=== PATIENT | female | born 1940 | race Caucasian/White ===

== ENCOUNTER 2016-10-29 05:48 | Observation (INO) | payer MEDICARE ==
--- NOTE | ~2016-10-29 | DS ---
Discharge Summary [facility] [address] [place]. [address] NAME: SANDRA ABDALLA : 36 STATUS : DIS Joellen PAT#: [id number] AGE: 75 ADM/REG DATE : 10/29/16 MR#: [id number] REPORT SERV DATE: 11/01/16 DICTATED BY: LIGIA KILPATRICK II DATE: 10/31/16 REPORT STATUS : Draft TRANSCRIBED BY: MODL DATE: 10/31/16 ADMISSION DATE: 10/29/2016 DISCHARGE DATE: 10/31/2016 DISCHARGE DIAGNOSES: 1. Reported lower gastrointestinal bleed with no evidence currently, currently resolved. 2. Urinary tract infection. 3. Acute kidney injury. 4. Atrial fibrillation, on Eliquis. 5. Debility due to history of hip fracture and history of cerebrovascular accident. 6. Dementia. 7. Coronary artery disease. CONSULTS: Morales Mitchell M.D., with GI. BRIEF HISTORY OF PRESENT ILLNESS: The patient is a 75-year-old female with the above history who presented to [facility] due to alleged GI bleeding. For detailed history and physical examination, please see Dr. Tony Roy's note from 10/29/2016. HOSPITAL COURSE: After admission, the patient's stool was sent for occult blood, which was negative. Dr. Mitchell saw the patient, and while at [facility], she had no evidence of any bleeding or melena. Her stools were brown, and as mentioned, her Hemoccult was negative. Dr. Mitchell, especially in light of stable hemoglobin, was not inclined to scope the patient, so she was observed and has had no further issues. Her Eliquis has been restarted and she is, otherwise, stable. She was noted to have moderate leukocyte esterase, small blood, and greater than 182 white cells in her urine with urine culture positive for E coli. She was given Rocephin and switched to Duricef, which she will take four more days. Also of note, her creatinine was elevated at 1.52 on admission. Her losartan and Lasix have been continued and has gone up slightly to 1.6. She has no evidence of edema, likely secondary to over-diuresis. We will hold her losartan and decrease her Lasix to 40 daily and have her repeat a BMP this Wednesday to make sure she will be able to restart her medications. Currently, stable for discharge back to [facility]. DISCHARGE MEDICATIONS: 1. Norvasc 10 mg p.o. daily. 2. Lasix 40 mg p.o. daily. 3. Amaryl 4 mg p.o. daily. 4. Madison 7.5/325 mg p.o. daily. 5. Lantus 10 units subcu at bedtime. 6. Metoprolol 100 mg p.o. daily. 7. Protonix 40 mg p.o. daily. 8. K-Dur 20 mEq p.o. daily. 9. Sodium bicarbonate 1300 mg p.o. b.i.d. 10.Carafate 1 g p.o. before each meal and at bedtime. 11.Toviaz 8 mg p.o. daily. 12.Eliquis 2.5 mg p.o. b.i.d. Discharge Summary [address] [address] NAME: SANDRA ABDALLA : 36 STATUS : DIS Joellen PAT#: [id number] AGE: 75 ADM/REG DATE : 10/29/16 MR#: [id number] REPORT SERV DATE: 11/01/16 DICTATED BY: LIGIA KILPATRICK II DATE: 10/31/16 REPORT STATUS : Draft TRANSCRIBED BY: VONNIE DATE: 10/31/16 13.Duricef 1000 mg p.o. b.i.d. x4 days. 14.May restart losartan when creatinine normalizes. DISCHARGE INSTRUCTIONS: The patient will be discharged back to [facility] for further care. JASON/VONNIE Ligia Kilpatrick II, MD / [id number] CC: Ligia Kilpatrick II, MD
--- NOTE | ~2016-10-29 | HP ---
History And Physical [place] [address] [place]. [address] NAME: SANDRA ABDALLA : 38 STATUS : ADM IN PAT#: [id number] AGE: 75 ADM/REG DATE : 10/29/16 MR#: [id number] REPORT SERV DATE: 10/29/16 DICTATED BY: LINDA BENAVIDEZ DATE: 10/29/16 REPORT STATUS : Draft TRANSCRIBED BY: MODL DATE: 10/29/16 DATE OF ADMISSION: 10/29/2016 REASON FOR ADMISSION: Alleged GI bleeding. HISTORY OF PRESENT ILLNESS: This is a 75-year-old white female who is alleged to have seen some blood in her stool around midnight at [facility]. She was sent to the emergency room at [place]. The reason was written on the record for blood in the stool. A rectal exam was done there. No result is available. She was seen by Dr. Joya and Dr. Carlisle. She was referred to [facility], received by Dr. Park for possible GI evaluation. The patient is on Eliquis because of atrial fibrillation and multiple previous strokes. She has had a massive GI bleed, was hospitalized at [place] in the past. She had a polyp in her stomach that was removed and others that were clipped back in 2012. Daughter gives the history because the patient has multiple vascular insults to her brain and has had a rapid decline in dementia. She had trouble walking after she left the hospital in 2012, has not walked again since hip fracture in 06/2016 and has been in the longterm, is completely bedridden now. She had wanted to be on life support in the past though discussed and declined with daughter. If the natural comes, the patient will not be resuscitated in the event of a cardiac arrest. History from the patient is not forthcoming. She is unable to tell me that she saw any blood at all. She was told she had blood in her stool and sent to the emergency room. Confirmation in the emergency room is not forthcoming from Dr. Carlisle's note at [facility]. PAST MEDICAL HISTORY: Massive GI bleeding at [place] whether this was [place] or [facility] is unclear. This was in 2012. The patient had abrupt decline after that. She was in the ICU for a prolonged period of time. Her colonoscopy was done in 2012 as well as upper endoscopy. Daughter is sure that the reference to pathology was in the stomach at the hospital in [place]. She was hospitalized on multiple occasions most recently at [place] with a fractured hip in June but has not walked since that time. Her other medical conditions include diabetes type 2 with long-term use of insulin, multiple TIAs and strokes with some left hemiparesis residual. She has atherosclerotic cardiovascular disease and had CABG in the past. She has had difficulty walking with muscle weakness and atrophy, cognitive dysfunction with increasing dementia, rapidly advancing, since June, osteoarthritis, history of atrial fibrillation, long-term use of anticoagulants, most recently Eliquis, history of left hip fracture and artificial joint replacement. MEDICATIONS: Her longterm medicines are listed as follows: Lantus 10 units subcu at bedtime, amlodipine 10 mg p.o. daily, furosemide 80 mg p.o. daily, Glimepiride 4 mg p.o. History And Physical [address] [address] NAME: SANDRA ABDALLA : 38 STATUS : ADM IN [facility]#: [id number] AGE: 75 ADM/REG DATE : 10/29/16 MR#: [id number] REPORT SERV DATE: 10/29/16 DICTATED BY: LINDA BENAVIDEZ DATE: 10/29/16 REPORT STATUS : Draft TRANSCRIBED BY: VONNIE DATE: 10/29/16 daily, hydrocodone 7.5/325 one p.o. each morning for pain, Tamiflu ceased 2 weeks ago, losartan 100 mg p.o. daily, metolazone 2.5 mg on Wednesday, Wednesday, Wednesday, metoprolol ER 100 mg p.o. by mouth daily, pantoprazole 40 mg p.o. daily, potassium chloride 20 mEq p.o. daily, Toviaz ER 8 mg p.o. daily, Eliquis 2.5 mg p.o. b.i.d., sodium bicarbonate 650 two tablets b.i.d., JASE hose, Carafate 1 g before each meal and at bedtime, acetaminophen 650 mg p.o. q.6 hours p.r.n. pain, milk of magnesia as needed, Fleet Enema as needed, soapsuds enema as needed. SOCIAL HISTORY: The patient is a retired school bus operator. She was 45 years ago. She has two daughters. She never smoked. Drank occasionally socially. Attended religion in the remote past. She lived in [place] in 1965, most recently in [place] for many years. She has a daughter who lives in [place]. Another daughter lives in [place], [place] who spoke with me, Carlos Wills. FAMILY HISTORY: There are no known diseases that run in the family according to the patient. REVIEW OF SYSTEMS: She denies any chest pain, shortness of breath. No fever, chills, night sweats. No unilateral weakness. She denies knowing of stool bleeding firsthand. She has been in the hospital in various places, [place], [place], [facility] but most recently transferred here for GI bleeding. The patient has history of DVT and PE in the past. The remainder of the review of systems is unobtainable or negative. PHYSICAL EXAMINATION: GENERAL: She has a melenic fetor, stool has that smell as does flatus and possibly breath. VITAL SIGNS: Blood pressure was 150/65, heart rate 94, respiratory rate 14, temperature 98. HEENT: EOMI. Sclerae clear. Conjunctivae pink. NECK: No bruit without any JVD. CHEST: Clear to A and P. HEART: Regular S1, S2 without murmur, gallop, or click. ABDOMEN: Soft, nontender. Bowel sounds are positive. EXTREMITIES: No edema. She is partially obese. RECTAL: Showed light onofre stool with hemorrhoids palpable. No clot was seen on visual inspection. No masses felt in the rectal examination. NEUROLOGIC: The patient has tremor left side with left-sided weakness. She has clonus right side greater than left side with extension contractures of her ankles. Her assistant counsel on the right side is intact. She is alert, able to give history, and her speech is normal. She does not recall a complete history and is evasive about her answers. Tongue is midline. LYMPHATICS: There is no adenopathy palpable. SKIN: There is some ecchymosis of her left arm. LYMPHATICS: There is no mass. BREASTS: Postmastectomy on the right side. LABORATORY: CMP shows sodium 137, potassium 3.7. Her creatinine is 1.52 with BUN of 42. Her glucose 81, albumin 2.6. Liver tests were normal. Her hemoglobin was 10.1, hematocrit History And Physical [place] [id number] [facility] [place]. [address] NAME: SANDRA ABDALLA : 36 STATUS : ADM IN PAT#: [id number] AGE: 75 ADM/REG DATE : 10/29/16 MR#: [id number] REPORT SERV DATE: 10/29/16 DICTATED BY: LINDA BENAVIDEZ DATE: 10/29/16 REPORT STATUS : Draft TRANSCRIBED BY: MODL DATE: 10/29/16 31.3, MCV was 79.6, platelets 235. INR was 1.4. Her glucose checked 102 and 95. From the emergency room at [place], her previous hemoglobin on 10/01/2016 was 11.2 with hematocrit of 34.7, MCV 77.6 with a platelet count of 265. Her sodium 137, potassium 4.4, creatinine 1.7, BUN 49. Liver tests normal. Alk phosphatase slightly elevated at 112. In the emergency room at [facility], her hemoglobin is 10.6, hematocrit 31.4 with an MCV of 77.7, white count 9.5. Her creatinine was 1.6 with BUN of 48 there. ASSESSMENT: 1. Alleged gastrointestinal bleeding. A note from longterm showed lower gastrointestinal bleeding. She does have a history of massive upper gastrointestinal bleed. The patient does have a fetor of upper gastrointestinal bleeding and expected to see melanic stool. Rectal exam was negative. We will send stool for occult blood and check the stool from [place] to see if it was positive there. She does have a low MCV indicating probably some degree of blood loss. I question if Eliquis is safe with a history of an incomplete therapy of an upper gastrointestinal bleed in 2012 at [place], however, the patient does have a history of deep vein thrombosis and pulmonary embolism in the past. Managing this balance will be difficult and daughter understands this. The patient is to be a DNR here and she will reconsider at home. Hospice was discussed with daughter on the telephone and with the end of life care. 2. Coagulopathy, on Eliquis because of previous atrial fibrillation. 3. Dementia, likely vascular with multiple strokes and TIAs probably from the cardioembolic phenomena from her atrial fibrillation. 4. Atrial fibrillation. 5. Recent fractured left hip. 6. Complete bed ridden status. 7. Clonus, right greater than left. 8. Left hemiparesis from previous stroke. 9. Nonambulatory. 10.History of right mastectomy assumed from cancer. Stage and treatment are unknown at this point. 11.History of CABG with atherosclerotic cardiovascular disease. 12.Multiple strokes with neurologic deficits and progressive decline since 06/2016. PLAN: I am going to hold Eliquis. Home medications have not been identified and listed just yet but we will limit diabetes medications for now. If blood sugars have been low, give 1 L of normal saline. Repeat the serial hematocrits to see if there is evidence of bleeding. I am going to consult GI for consideration of an EGD to see if it is actually safe to give Eliquis given the previous history of upper GI pathology at [place] in 2012 when she had a massive upper GI bleed. The patient will be a DNR after discussion with her daughter, Carlos Wills, and she will consider Hospice Care once discharged from the hospital. BAYRON/VONNIE History And Physical [address] [address] NAME: SANDRA ABDALLA : 36 STATUS : ADM IN [facility]#: [id number] AGE: 75 ADM/REG DATE : 10/29/16 MR#: [id number] REPORT SERV DATE: 10/29/16 DICTATED BY: LINDA BENAVIDEZ DATE: 10/29/16 REPORT STATUS : Draft TRANSCRIBED BY: VONNIE DATE: 10/29/16 Linda Benavidez M.D. / [id number] CC: Jose Alberto Ontiveros M.D.
[2016-10-29 08:59] LABS: BASOPHILS 0.2 %; BASOPHILS ABSOLUTE 0.02 10/3/uL (0.0-0.16); EOSINOPHILS 1.5 %; EOSINOPHILS ABSOLUTE 0.13 10/3/uL (0.0-0.53); HEMATOCRIT 31.3 % (36.0-48.0); HEMOGLOBIN 10.1 g/dL (12.0-16.0); IMMATURE GRANULOCYTES 0.2 %; IMMATURE GRANULOCYTES ABSOLUTE 0.02 10/3/uL (0.0-0.11); LYMPHOCYTES 37.1 %; LYMPHOCYTES ABSOLUTE 3.11 10/3/uL (0.67-4.30); MEAN CORPUS HGB CONC 32.3 g/dL (32.0-36.0); MEAN CORPUSCULAR HEMOGLOB 25.7 pg (26.0-34.0); MEAN CORPUSCULAR VOLUME 79.6 fL (80-100); MEAN PLATELET VOLUME 9.7 fL (9.2-13.0); MONOCYTES 5.5 %; MONOCYTES ABSOLUTE 0.46 10/3/uL (0.21-1.20); NEUTROPHILS 55.5 %; NEUTROPHILS ABSOLUTE 4.65 10/3/uL (2.02-8.40); PLATELET COUNT 235 10/3/uL (150-400); RBC DISTRIBUTION WIDTH 14.1 % (12.0-16.0); RED CELL COUNT 3.93 10/6/uL (4.0-5.6); WHITE BLOOD CELLS 8.4 10/3/uL (4.5-10.5)
[2016-10-29 09:00] LABS: MANUAL DIFF NO %
[2016-10-29 09:06] LABS: INTERNATIONAL NORMAL RATI 1.4 UNITS (-); PARTIAL THROMBO TIME 28.6 SEC (22.5-37.2); PROTIME (NOT ORD) 16.8 SEC (12.0-14.5)
[2016-10-29 09:18] LABS: A/G RATIO 0.7 (0.7-1.9); ALBUMIN 2.6 G/DL (3.5-5.0); ALKALINE PHOSPHATASE 102 U/L (45-117); BUN (BLOOD UREA NITROGEN) 42 MG/DL (6-23); CHLORIDE, SERUM 102 MMOL/L (96-112); CO2 (CARBON DIOXIDE) 25 MMOL/L (24-34); CREATININE 1.52 MG/DL (0.55-1.02); GFR AFRICAN AMERICAN 38 ML/MIN (>=60); GFR NON AFRICAN AMERICAN 33 ML/MIN (>=60); GLOBULIN 3.9 G/DL (2.5-4.1); GLUCOSE, SERUM 81 MG/DL (60-99); POTASSIUM, SERUM 3.8 MMOL/L (3.5-5.3); SGOT(AST) 20 U/L (5-40); SGPT(ALT) 26 U/L (5-65); SODIUM, SERUM 137 MMOL/L (135-148); TOTAL BILIRUBIN 0.3 MG/DL (0-1.2); TOTAL PROTEIN 6.5 G/DL (6.0-8.5)
[2016-10-29 11:50] LABS: ASCORBIC ACID (UR NOT ORDER) NEG (NEG); BILIRUBIN, URINE NEGATIVE (NEG); KETONE, URINE TRACE MG/DL (NEG); LEUKOCYTE ESTERASE(NOT OR MOD (NEG)
[2016-10-29 11:51] LABS: WBC (NOT ORDERED) (RFLEX) > 182 (0-5)
[2016-10-29 13:09] LABS: HEMATOCRIT 31.4 % (36.0-48.0); HEMOGLOBIN 10.3 g/dL (12.0-16.0)
[2016-10-29] MEDS ORDERED: LANTUS SC (13:54)
[2016-10-29] MEDS ORDERED: L80 PO (13:56)
[2016-10-29] MEDS ORDERED: AMARYL4 PO (13:56)
[2016-10-29] MEDS ORDERED: NORV10 PO (13:56)
[2016-10-29] MEDS ORDERED: TAMIFLU PO (13:57)
[2016-10-29] MEDS ORDERED: COZAAR100 MG PO (13:57)
[2016-10-29] MEDS ORDERED: NORCO1 TA2 PO (13:57)
[2016-10-29] MEDS ORDERED: ZAROX2.5B PO (13:58)
[2016-10-29] MEDS ORDERED: TOPXL100 PO (13:58)
[2016-10-29] MEDS ORDERED: TOVIAZ8 MG PO (13:59)
[2016-10-29] MEDS ORDERED: SODBICAR10 PO (13:59)
[2016-10-29] MEDS ORDERED: PROTONIX PO (13:59)
[2016-10-29] MEDS ORDERED: KDUR20 PO (13:59)
[2016-10-29] MEDS ORDERED: ELIQUIS 2.5 MG2.5 MG PO (13:59)
[2016-10-29] MEDS ORDERED: CARASPUDL PO (14:00)
[2016-10-29 16:12] LABS: HEMOGLOBIN 10.1 g/dL (12.0-16.0)
[2016-10-29 23:00] LABS: HEMATOCRIT 30.9 % (36.0-48.0); HEMOGLOBIN 10.2 g/dL (12.0-16.0)
[2016-10-30 09:18] LABS: HEMATOCRIT 35.2 % (36.0-48.0); HEMOGLOBIN 11.7 g/dL (12.0-16.0)
[2016-10-30 15:36] LABS: HEMATOCRIT 35.9 % (36.0-48.0)
[2016-10-30 22:40] LABS: HEMOGLOBIN 11.5 g/dL (12.0-16.0)
[2016-10-31 10:51] LABS: BASOPHILS 0.3 %; BASOPHILS ABSOLUTE 0.02 10/3/uL (0.0-0.16); EOSINOPHILS 1.2 %; EOSINOPHILS ABSOLUTE 0.09 10/3/uL (0.0-0.53); HEMOGLOBIN 11.8 g/dL (12.0-16.0); IMMATURE GRANULOCYTES 0.3 %; IMMATURE GRANULOCYTES ABSOLUTE 0.02 10/3/uL (0.0-0.11); LYMPHOCYTES 36.9 %; LYMPHOCYTES ABSOLUTE 2.84 10/3/uL (0.67-4.30); MEAN CORPUS HGB CONC 32.8 g/dL (32.0-36.0); MEAN CORPUSCULAR VOLUME 79.5 fL (80-100); MEAN PLATELET VOLUME 9.7 fL (9.2-13.0); MONOCYTES 8.2 %; MONOCYTES ABSOLUTE 0.63 10/3/uL (0.21-1.20); NEUTROPHILS 53.1 %; NEUTROPHILS ABSOLUTE 4.09 10/3/uL (2.02-8.40); PLATELET COUNT 262 10/3/uL (150-400); RED CELL COUNT 4.53 10/6/uL (4.0-5.6); WHITE BLOOD CELLS 7.7 10/3/uL (4.5-10.5)
[2016-10-31 10:59] LABS: CALCIUM, SERUM 8.9 MG/DL (8.5-10.4); CHLORIDE, SERUM 98 MMOL/L (96-112); CO2 (CARBON DIOXIDE) 26 MMOL/L (24-34); CREATININE 1.62 MG/DL (0.55-1.02); GFR AFRICAN AMERICAN 35 ML/MIN (>=60); GFR NON AFRICAN AMERICAN 30 ML/MIN (>=60); POTASSIUM, SERUM 4.1 MMOL/L (3.5-5.3); SODIUM, SERUM 139 MMOL/L (135-148)
[2016-10-31 11:01] LABS: BUN (BLOOD UREA NITROGEN) 25 MG/DL (6-23); GLUCOSE, SERUM 179 MG/DL (60-99)
[2016-10-31 11:05] LABS: MANUAL DIFF NO %
[2016-10-31 17:20] LABS: HEMATOCRIT 35.2 % (36.0-48.0); HEMOGLOBIN 11.6 g/dL (12.0-16.0)
== END 2016-10-31 19:29 ==
LOC: 6NO 05:48
PROVIDERS: Hospitalist; Internal Medicine
DX: K92.2 Gastrointestinal hemorrhage, unspecified (principal); N39.0 Urinary tract infection, site not specified; S37.009A Unspecified injury of unspecified kidney, initial encounter; I48.91 Unspecified atrial fibrillation; I69.398 Other sequelae of cerebral infarction; F03.90 Unspecified dementia, unspecified severity, without behavioral disturbance, psychotic disturbance, mood disturbance, and anxiety; I25.10 Atherosclerotic heart disease of native coronary artery without angina pectoris; E11.9 Type 2 diabetes mellitus without complications; Z79.4 Long term (current) use of insulin; I69.354 Hemiplegia and hemiparesis following cerebral infarction affecting left non-dominant side; Z95.5 Presence of coronary angioplasty implant and graft; M19.90 Unspecified osteoarthritis, unspecified site; Z79.01 Long term (current) use of anticoagulants; R26.2 Difficulty in walking, not elsewhere classified; Z90.11 Acquired absence of right breast and nipple; Z79.899 Other long term (current) drug therapy
CPT/HCPCS: 80048; 80053; 81001; 82272; 82962; 85014; 85018; 85025; 85610; 85730; 87077; 87086; 87186; 96374; A9270-GY; G0378